=== PATIENT | male | born 1965 | race Caucasian/White ===

== ENCOUNTER 2020-11-02 12:42 | Inpatient (IN) | payer SELFPAY ==
[2020-11-02 13:15] LABS: Actual Bicarbonate (HCO3a) 23.9 mEq/L (22-28); Analyzer IN Cardio ER; CO2 Tension 30.7 mmHg (35.0-45.0); Calcium, Ionized (arterial) 1.01 mmol/L (1.12-1.30); Carboxyhemoglobin (COHb) 0.9 gm% (0.0-3.0); Hemoglobin (Hb) 16.6 g/dL (14.0-18.0); Potassium - ABG Lab 2.89 mmol/L (3.70-5.30); pH, Arterial 7.51 (7.35-7.45)
[2020-11-02 13:17] LABS: O2 Tension (PaO2), arterial 42.5 mmHg (80.0-100.0); Puncture Site LRA
[2020-11-02 13:18] LABS: ALV-art Gradient 560.825 mmHg (0-20)
[2020-11-02] MEDS ORDERED: Dexamethasone 10 MG/ML VIAL ONE (13:54)
[2020-11-02] MEDS ORDERED: Lorazepam 2 MG/ML VIAL ONE ×2 (13:54→17:22)
[2020-11-02 14:46] LABS: Actual Bicarbonate (HCO3a) 25.7 mEq/L (22-28); Analyzer IN Cardio ER; CO2 Tension 34.4 mmHg (35.0-45.0); Calcium, Ionized (arterial) 1.04 mmol/L (1.12-1.30); Carboxyhemoglobin (COHb) 0.5 gm% (0.0-3.0); Hemoglobin (Hb) 17.2 g/dL (14.0-18.0); Potassium - ABG Lab 3.13 mmol/L (3.70-5.30); pH, Arterial 7.49 (7.35-7.45)
[2020-11-02 14:47] LABS: O2 Tension (PaO2), arterial 52.7 mmHg (80.0-100.0); Puncture Site RRA
[2020-11-02 14:56] LABS: #Basophils 0.1 thou/uL (0.0-0.2); #Lymphocytes 0.5 thou/uL (1.20-3.40); #Monocytes 0.4 thou/uL (0.11-0.59); #Neutrophils 5.8 thou/uL (1.40-6.50); %Basophils 1.5 % (0.0-1.0); %Lymphocytes 7.6 % (21.0-51.0); %Monocytes 5.3 % (0.0-10.0); %Neutrophils 85.5 % (42.0-75.0); Hemoglobin 16.3 g/dL (14.0-18.0); Mean Corpuscular HGB CONC 34.3 g/dL (32.0-36.0); Mean Corpuscular Hemoglobin 30.2 pg (27.0-31.0); Mean Corpuscular Volume 88.2 fL (78.0-98.0); Mean Platelet Volume 9.4 fL (7.4-10.4); Platelet Count 143 thou/uL (130-400); RBC Distribution Width 12.5 % (11.5-14.5); Red Blood Cell (RBC) Count 5.38 mill/uL (4.70-6.10); White Blood Cell (WBC) Count 6.7 thou/uL (4.8-10.8)
[2020-11-02 15:11] LABS: SARS-CoV-2 NAA Rapid Test DETECTED (NotDetected)
[2020-11-02] MEDS ORDERED: cefTRIAXone\\ROCEPHIN 2 GM VIAL ONE (15:14)
[2020-11-02 15:17] LABS: ALT (SGPT) 50 U/L (8-55); AST (SGOT) 143 U/L (5-34); Albumin 3.2 g/dL (3.5-5.0); Alkaline Phosphatase 85 U/L (40-110); Anion Gap 16 mmol/L (10-20); BUN (Urea Nitrogen) 26 mg/dL (8.4-25.7); Bilirubin, Total 1.1 mg/dL (0.2-1.2); Calc. Creatinine Clearance 0 mL/min (70-130); Calcium 8.4 mg/dL (7.8-10.44); Carbon Dioxide 25 mmol/L (22-29); Chloride 97 mmol/L (98-107); Glucose 318 mg/dL (70-105); Lipase 40 U/L (8-78); Potassium 3.1 mmol/L (3.5-5.1); Protein, Total 7.2 g/dL (6.0-8.3); Sodium 135 mmol/L (136-145)
[2020-11-02] MEDS ORDERED: Rocuronium Bromide 10 MG/ML (10ML VIAL) ONE (15:45)
[2020-11-02] MEDS ORDERED: Ketamine 50 MG/ML (10ML VIAL) ONE (15:45)
[2020-11-02 15:56] LABS: CKMB 26.3 ng/mL (0-6.6)
[2020-11-02] MEDS ORDERED: Norepinephrine 8 MG/0.9% NS 250 ML ONE (16:49)
[2020-11-02 16:54] LABS: Actual Bicarbonate (HCO3a) 22.1 mEq/L (22-28); Analyzer IN Cardio ER; Base Excess (BEa) 0.1 mEq/L (-2.0 to +3.0); CO2 Tension 29.6 mmHg (35.0-45.0); Calcium, Ionized (arterial) 1.04 mmol/L (1.12-1.30); Carboxyhemoglobin (COHb) 0.5 gm% (0.0-3.0); Hemoglobin (Hb) 16.6 g/dL (14.0-18.0); Potassium - ABG Lab 3.43 mmol/L (3.70-5.30); pH, Arterial 7.49 (7.35-7.45)
[2020-11-02 17:02] LABS: O2 Tension (PaO2), arterial 50.5 mmHg (80.0-100.0); Puncture Site LRA
[2020-11-02] MEDS ORDERED: fentaNYL Citrate/PF 2,000 MCG in Sodium Chloride 0.9% 60 ML IV PRN (17:07)
[2020-11-02] MEDS ORDERED: Magnesium 2 GM/50 ML 2 GM in Premix Bag 1 BAG IVPB PRN (17:07)
[2020-11-02] MEDS ORDERED: Vecuronium Bromide 50 MG in Sodium Chloride 0.9% 250 ML 250 ML IV SCH (17:15)
[2020-11-02] MEDS ORDERED: Famotidine 40 MG/4 ML VIAL IV SCH (17:15)
[2020-11-02] MEDS ORDERED: Acetaminophen 650 MG Suppository PR PRN (17:15)
[2020-11-02] MEDS ORDERED: Lactated Ringer's 1,000 ML IV SCH (17:15)
[2020-11-02] MEDS ORDERED: Electrolyte Replacement Protocol 1 EACH FS SCH (17:15)
[2020-11-02] MEDS ORDERED: Vecuronium 10 MG VIAL ONE (17:23)
[2020-11-02] MEDS ORDERED: Sterile Water 10 ML ONE (17:23)
[2020-11-02] MEDS ORDERED: Electrolyte Replacement Protocol FS PRN (18:00)
[2020-11-02] MEDS ORDERED: fentaNYL Citrate/PF 2,000 MCG in Sodium Chloride 0.9% 60 ML IV SCH (18:00)
[2020-11-02] MEDS: Propofol 1,000 MG/100 ML VIAL IV PRN (18:02)
[2020-11-02] MEDS: Cefepime 1 GM in Sodium Chloride 0.9% 100 ML IVPB SCH (18:02)
[2020-11-02 18:36] LABS: Lactic Acid 3.2 mmol/L (0.5-2.2)
[2020-11-02 18:55] LABS: Troponin I 8.421 ng/mL (< 0.028)
[2020-11-02] MEDS ORDERED: Tocilizumab 400 MG in Sodium Chloride 0.9% 80 ML IV SCH (19:30)
[2020-11-02 19:31] LABS: Actual Bicarbonate (HCO3a) 20.4 mEq/L (22-28); Base Excess (BEa) -1.8 mEq/L (-2.0 to +3.0); CO2 Tension 28.6 mmHg (35.0-45.0); Calcium, Ionized (arterial) 1.04 mmol/L (1.12-1.30); Carboxyhemoglobin (COHb) 0.9 gm% (0.0-3.0); Hemoglobin (Hb) 15.6 g/dL (14.0-18.0); Potassium - ABG Lab 3.49 mmol/L (3.70-5.30); pH, Arterial 7.47 (7.35-7.45)
[2020-11-02 19:43] LABS: O2 Tension (PaO2), arterial 51.4 mmHg (80.0-100.0); Puncture Site LRA
[2020-11-02] MEDS ORDERED: Enoxaparin Sodium 120 MG/0.8 ML SYRINGE SC SCH (20:15)
[2020-11-02] MEDS: Azithromycin 500 MG in Sodium Chloride 0.9% 250 ML 250 ML IVPB SCH (20:47)
[2020-11-02] MEDS: Lantus 1000 UNITS/10 ML VIAL SC SCH (20:52)
[2020-11-02] MEDS ORDERED: Dextrose 5% in Water 1,000 ML IV PRN (21:00)
[2020-11-02] MEDS ORDERED: Insulin Regular 300 UNITS/3 ML VIAL SC SCH (21:00)
[2020-11-02] MEDS ORDERED: Dextrose 50% Abboject 50 ML SYRINGE IVP PRN (21:00)
[2020-11-02] MEDS: Famotidine/PF 20 mg/2ml Vial SLOW IVP SCH (21:02)
[2020-11-02] MEDS: Insulin Regular 300 UNITS/3 ML VIAL SC PRN (21:30)
[2020-11-02 22:03] LABS: Bacteria/HPF 2+ HPF (None Seen); Bilirubin Negative (Negative); Blood, Urine 2+ (Negative); Glucose, Urine (Dipstick) Greater than 1000 mg/dL (Negative); Ketone, Urine Negative (Negative); Leukocyte Negative Leu/uL (Negative); Nitrite Negative (Negative); Protein, Urine (Dipstick) 100 mg/dL (Neg-Trace); RBC/HPF 0-3 HPF (0-3); Specific Gravity, Urine 1.023 (1.002-1.036); Squamous Epithelial 0-3 HPF (0-3); Urobilinogen 6 mg/dL (Less than 2)
[2020-11-02 22:04] LABS: Clarity Cloudy (Clear)
[2020-11-03] MEDS: Insulin Regular 300 UNITS/3 ML VIAL SC PRN ×6 (00:35→21:39)
[2020-11-03] MEDS: Lorazepam 2 MG/ML VIAL SLOW IVP PRN (01:00)
[2020-11-03] MEDS: Propofol 1,000 MG/100 ML VIAL IV PRN ×6 (02:31→23:54)
[2020-11-03] MEDS: Cefepime 1 GM in Sodium Chloride 0.9% 100 ML IVPB SCH ×3 (02:31→16:49)
[2020-11-03 05:08] LABS: #Lymphocytes 0.9 thou/uL (1.20-3.40); #Monocytes 0.5 thou/uL (0.11-0.59); #Neutrophils 5.2 thou/uL (1.40-6.50); %Basophils 0.4 % (0.0-1.0); %Eosinophils 0.2 % (0.0-10.0); %Lymphocytes 13.2 % (21.0-51.0); %Monocytes 6.9 % (0.0-10.0); %Neutrophils 79.4 % (42.0-75.0); Hemoglobin 14.6 g/dL (14.0-18.0); Mean Corpuscular HGB CONC 35.2 g/dL (32.0-36.0); Mean Corpuscular Hemoglobin 31.8 pg (27.0-31.0); Mean Corpuscular Volume 90.4 fL (78.0-98.0); Mean Platelet Volume 9.8 fL (7.4-10.4); Platelet Count 183 thou/uL (130-400); RBC Distribution Width 12.8 % (11.5-14.5); White Blood Cell (WBC) Count 6.6 thou/uL (4.8-10.8)
[2020-11-03 05:31] LABS: Magnesium 2.1 mg/dL (1.6-2.6); Phosphorus 3.2 mg/dL (2.3-4.7)
[2020-11-03] MEDS ORDERED: Potassium Chloride 40 MEQ in Premix Bag 1 BAG IVPB SCH (06:15)
[2020-11-03] MEDS ORDERED: Dextrose 5% in Water 1,000 ML IV PRN (06:15)
[2020-11-03] MEDS ORDERED: Lactated Ringer's 1,000 ML IV SCH (06:15)
[2020-11-03] MEDS ORDERED: Dextrose 50% Abboject 50 ML SYRINGE IVP PRN (06:15)
[2020-11-03] MEDS: Lantus 1000 UNITS/10 ML VIAL SC SCH ×2 (06:19→16:54)
[2020-11-03] MEDS ORDERED: Fentanyl CADD 100 ML ONE ×2 (06:19→18:56)
[2020-11-03 07:06] LABS: Actual Bicarbonate (HCO3a) 19.1 mEq/L (22-28); Base Excess (BEa) -3.6 mEq/L (-2.0 to +3.0); CO2 Tension 28.8 mmHg (35.0-45.0); Calcium, Ionized (arterial) 1.05 mmol/L (1.12-1.30); Carboxyhemoglobin (COHb) 0.6 gm% (0.0-3.0); Hemoglobin (Hb) 15.3 g/dL (14.0-18.0); O2 Tension (PaO2), arterial 60.1 mmHg (80.0-100.0); Potassium - ABG Lab 3.35 mmol/L (3.70-5.30); pH, Arterial 7.44 (7.35-7.45)
[2020-11-03 07:07] LABS: Puncture Site RRA
[2020-11-03 07:42] LABS: Legionella Urinary Ag Negative (Negative); Strep pneumo Urine Ag NEGATIVE (NEGATIVE)
[2020-11-03] MEDS: Dexamethasone 4 mg/ml Vial SLOW IVP SCH (08:40)
[2020-11-03] MEDS: Enoxaparin Sodium 120 MG/0.8 ML SYRINGE SC SCH ×2 (08:41→20:36)
[2020-11-03] MEDS: Famotidine/PF 20 mg/2ml Vial SLOW IVP SCH ×2 (08:41→20:37)
[2020-11-03] MEDS ORDERED: Enoxaparin Sodium 40 MG/0.4 ML SYRINGE SC SCH ×2 (09:00)
[2020-11-03] MEDS ORDERED: Lantus 1000 UNITS/10 ML VIAL SC SCH (11:15)
[2020-11-03 17:15] LABS: Actual Bicarbonate (HCO3a) 19.7 mEq/L (22-28); Base Excess (BEa) -2.5 mEq/L (-2.0 to +3.0); CO2 Tension 27.4 mmHg (35.0-45.0); Calcium, Ionized (arterial) 1.04 mmol/L (1.12-1.30); Carboxyhemoglobin (COHb) 0.7 gm% (0.0-3.0); Hemoglobin (Hb) 13.8 g/dL (14.0-18.0); Potassium - ABG Lab 3.32 mmol/L (3.70-5.30); pH, Arterial 7.47 (7.35-7.45)
[2020-11-03] MEDS ORDERED: Sodium Chloride 0.9% 1,000 ML IV SCH (17:15)
[2020-11-03 17:16] LABS: O2 Tension (PaO2), arterial 46.9 mmHg (80.0-100.0); Puncture Site LRA
[2020-11-03] MEDS ORDERED: Albumin 25% 25 GM/100 ML BOT IVPB SCH (17:42)
[2020-11-03] MEDS: Lactated Ringer's 1,000 ML IV SCH (18:20)
[2020-11-03] MEDS: Fentanyl CADD 100 ML IV SCH (19:02)
[2020-11-03] MEDS: Azithromycin 500 MG in Sodium Chloride 0.9% 250 ML 250 ML IVPB SCH (20:36)
[2020-11-04] MEDS: Insulin Regular 300 UNITS/3 ML VIAL SC PRN ×6 (00:28→20:14)
[2020-11-04] MEDS: Cefepime 1 GM in Sodium Chloride 0.9% 100 ML IVPB SCH ×3 (02:09→17:55)
[2020-11-04] MEDS: Propofol 1,000 MG/100 ML VIAL IV PRN ×6 (04:10→22:28)
[2020-11-04 04:48] LABS: #Lymphocytes 0.8 thou/uL (1.20-3.40); #Monocytes 0.5 thou/uL (0.11-0.59); #Neutrophils 5.4 thou/uL (1.40-6.50); %Basophils 0.6 % (0.0-1.0); %Eosinophils 0.1 % (0.0-10.0); %Lymphocytes 11.6 % (21.0-51.0); %Monocytes 7.2 % (0.0-10.0); %Neutrophils 80.6 % (42.0-75.0); Hemoglobin 13.1 g/dL (14.0-18.0); Mean Corpuscular HGB CONC 35.8 g/dL (32.0-36.0); Mean Corpuscular Hemoglobin 32.4 pg (27.0-31.0); Mean Corpuscular Volume 90.4 fL (78.0-98.0); Platelet Count 165 thou/uL (130-400); Red Blood Cell (RBC) Count 4.04 mill/uL (4.70-6.10); White Blood Cell (WBC) Count 6.7 thou/uL (4.8-10.8)
[2020-11-04 04:57] LABS: Anion Gap 17 mmol/L (10-20); BUN (Urea Nitrogen) 53 mg/dL (8.4-25.7); Calc. Creatinine Clearance 59 mL/min (70-130); Carbon Dioxide 20 mmol/L (22-29); Chloride 104 mmol/L (98-107); Glucose 358 mg/dL (70-105); Magnesium 2.3 mg/dL (1.6-2.6); Phosphorus 3.4 mg/dL (2.3-4.7); Potassium 3.6 mmol/L (3.5-5.1); Sodium 137 mmol/L (136-145)
[2020-11-04] MEDS: Lantus 1000 UNITS/10 ML VIAL SC SCH (05:38)
[2020-11-04] MEDS: Lactated Ringer's 1,000 ML IV SCH ×2 (06:12→16:45)
[2020-11-04 07:29] LABS: CO2 Tension 27.1 mmHg (35.0-45.0); Calcium, Ionized (arterial) 1.05 mmol/L (1.12-1.30); Carboxyhemoglobin (COHb) 0.1 gm% (0.0-3.0); O2 Tension (PaO2), arterial 83.5 mmHg (80.0-100.0); Potassium - ABG Lab 3.45 mmol/L (3.70-5.30); pH, Arterial 7.49 (7.35-7.45)
[2020-11-04 07:31] LABS: ALV-art Gradient 310.425 mmHg (0-20); Puncture Site LRA
[2020-11-04] MEDS ORDERED: Fentanyl CADD 100 ML ONE ×2 (07:45→21:12)
[2020-11-04] MEDS: Fentanyl CADD 100 ML IV SCH (07:56)
[2020-11-04] MEDS: Dexamethasone 4 mg/ml Vial SLOW IVP SCH (07:57)
[2020-11-04] MEDS: Enoxaparin Sodium 120 MG/0.8 ML SYRINGE SC SCH ×2 (07:57→20:12)
[2020-11-04] MEDS: Famotidine/PF 20 mg/2ml Vial SLOW IVP SCH ×2 (07:57→20:12)
[2020-11-04 09:52] LABS: Hemoglobin A1c 10.7 % (4.0-6.0)
[2020-11-04 12:26] LABS: Creatinine, Urine 142.23 mg/dL (63-166); Protein, Urine Random Quant 94 mg/dL (1-14); Sodium, Urine Less than 20 mmol/L (Not Available); Urea Nitrogen, Random Urine 1024 mg/dl
[2020-11-04] MEDS ORDERED: Lactated Ringer's 500 ML IV SCH (13:15)
[2020-11-04] MEDS ORDERED: Lantus 1000 UNITS/10 ML VIAL SC SCH ×2 (13:45→21:00)
[2020-11-04] MEDS: Azithromycin 500 MG in Sodium Chloride 0.9% 250 ML 250 ML IVPB SCH (20:11)
[2020-11-05] MEDS: Insulin Regular 300 UNITS/3 ML VIAL SC PRN ×5 (00:24→21:25)
[2020-11-05] MEDS: Cefepime 1 GM in Sodium Chloride 0.9% 100 ML IVPB SCH ×2 (01:46→09:15)
[2020-11-05 06:36] LABS: Band 11 % (5-11); Hemoglobin 12.9 g/dL (14.0-18.0); Lymphocytes 12 % (21-51); MDiff Complete? YES; Mean Corpuscular HGB CONC 32.8 g/dL (32.0-36.0); Mean Corpuscular Hemoglobin 29.9 pg (27.0-31.0); Mean Corpuscular Volume 90.9 fL (78.0-98.0); Monocytes 1 % (0-10); Myelocyte 1 % (0-0); Neutrophil 75 % (42-75); Nucleated RBC 3 % (0); Platelet Count 213 thou/uL (130-400); RBC Distribution Width 13.1 % (11.5-14.5); Red Blood Cell (RBC) Count 4.32 mill/uL (4.70-6.10); White Blood Cell (WBC) Count 9.7 thou/uL (4.8-10.8)
[2020-11-05 07:08] LABS: Albumin 2.9 g/dL (3.5-5.0); Anion Gap 18 mmol/L (10-20); BUN (Urea Nitrogen) 63 mg/dL (8.4-25.7); BUN/Creatinine Ratio 30.14; Calc. Creatinine Clearance 62 mL/min (70-130); Calcium 8.2 mg/dL (7.8-10.44); Carbon Dioxide 20 mmol/L (22-29); Chloride 108 mmol/L (98-107); Glucose 307 mg/dL (70-105); Phosphorus 3.4 mg/dL (2.3-4.7); Potassium 3.8 mmol/L (3.5-5.1); Sodium 142 mmol/L (136-145)
[2020-11-05 07:28] LABS: Actual Bicarbonate (HCO3a) 19.9 mEq/L (22-28); Base Excess (BEa) -2.2 mEq/L (-2.0 to +3.0); CO2 Tension 28.3 mmHg (35.0-45.0); Calcium, Ionized (arterial) 1.09 mmol/L (1.12-1.30); Carboxyhemoglobin (COHb) 0.5 gm% (0.0-3.0); Hemoglobin (Hb) 16.8 g/dL (14.0-18.0); Potassium - ABG Lab 3.62 mmol/L (3.70-5.30); pH, Arterial 7.47 (7.35-7.45)
[2020-11-05 07:45] LABS: O2 Tension (PaO2), arterial 55.7 mmHg (80.0-100.0); Puncture Site LRA
[2020-11-05 07:46] LABS: ALV-art Gradient 265.425 mmHg (0-20)
[2020-11-05] MEDS: Dexamethasone 4 mg/ml Vial SLOW IVP SCH ×2 (09:10→21:10)
[2020-11-05] MEDS: Enoxaparin Sodium 120 MG/0.8 ML SYRINGE SC SCH (09:12)
[2020-11-05] MEDS: Famotidine/PF 20 mg/2ml Vial SLOW IVP SCH (09:13)
[2020-11-05] MEDS: Sodium Bicarbonate Tab 325 MG TAB PER TUBE SCH ×3 (09:14→21:09)
[2020-11-05] MEDS: Lactated Ringer's 1,000 ML IV SCH ×3 (09:15→19:39)
[2020-11-05] MEDS: NPH, Human Insulin Isophane 300 UNIT/3 ML VIAL SC SCH ×2 (09:19→21:12)
[2020-11-05] MEDS ORDERED: Vecuronium 10 MG VIAL ONE (09:39)
[2020-11-05] MEDS ORDERED: Sterile Water 10 ML ONE (09:39)
[2020-11-05] MEDS: Lorazepam 2 MG/ML VIAL SLOW IVP PRN (10:13)
[2020-11-05] MEDS ORDERED: Fentanyl CADD 100 ML ONE (10:44)
[2020-11-05] MEDS: Propofol 1,000 MG/100 ML VIAL IV PRN ×4 (10:50→21:20)
[2020-11-05] MEDS: FENTANYL IV SCH (10:50)
[2020-11-06] MEDS ORDERED: Fentanyl CADD 100 ML ONE ×2 (00:03→13:38)
[2020-11-06] MEDS: Insulin Regular 300 UNITS/3 ML VIAL SC PRN ×4 (00:06→21:27)
[2020-11-06] MEDS: Propofol 1,000 MG/100 ML VIAL IV PRN ×6 (02:34→19:15)
[2020-11-06 04:23] LABS: Hemoglobin A1c 10.9 % (4.0-6.0)
[2020-11-06 05:08] LABS: Albumin 2.9 g/dL (3.5-5.0); Anion Gap 17 mmol/L (10-20); BUN (Urea Nitrogen) 66 mg/dL (8.4-25.7); BUN/Creatinine Ratio 30.84; Band 14 % (5-11); CK (CPK) 390 U/L (30-200); Calc. Creatinine Clearance 61 mL/min (70-130); Calcium 8.2 mg/dL (7.8-10.44); Carbon Dioxide 22 mmol/L (22-29); Chloride 106 mmol/L (98-107); Glucose 226 mg/dL (70-105); Hemoglobin 13.9 g/dL (14.0-18.0); Lymphocytes 7 % (21-51); MDiff Complete? YES; Mean Corpuscular HGB CONC 35.6 g/dL (32.0-36.0); Mean Corpuscular Hemoglobin 32.4 pg (27.0-31.0); Mean Corpuscular Volume 91.1 fL (78.0-98.0); Mean Platelet Volume 9.7 fL (7.4-10.4); Monocytes 5 % (0-10); Myelocyte 3 % (0-0); Neutrophil 71 % (42-75); Nucleated RBC 1 % (0); Phosphorus 4.1 mg/dL (2.3-4.7); Platelet Count 225 thou/uL (130-400); Potassium 3.8 mmol/L (3.5-5.1); RBC Distribution Width 13.1 % (11.5-14.5); Sodium 141 mmol/L (136-145); White Blood Cell (WBC) Count 14.3 thou/uL (4.8-10.8)
[2020-11-06] MEDS: Lactated Ringer's 1,000 ML IV SCH ×2 (05:47→08:51)
[2020-11-06 08:03] LABS: Actual Bicarbonate (HCO3a) 20.3 mEq/L (22-28); Base Excess (BEa) -2.3 mEq/L (-2.0 to +3.0); CO2 Tension 29.3 mmHg (35.0-45.0); Calcium, Ionized (arterial) 1.08 mmol/L (1.12-1.30); Carboxyhemoglobin (COHb) 0.6 gm% (0.0-3.0); Hemoglobin (Hb) 14.2 g/dL (14.0-18.0); Potassium - ABG Lab 3.76 mmol/L (3.70-5.30); pH, Arterial 7.46 (7.35-7.45)
[2020-11-06 08:27] LABS: O2 Tension (PaO2), arterial 51.3 mmHg (80.0-100.0)
[2020-11-06 08:28] LABS: ALV-art Gradient 339.875 mmHg (0-20); Puncture Site LRA
[2020-11-06] MEDS: Famotidine/PF 20 mg/2ml Vial SLOW IVP SCH (08:47)
[2020-11-06] MEDS: Dexamethasone 4 mg/ml Vial SLOW IVP SCH ×2 (08:47→21:00)
[2020-11-06] MEDS: NPH, Human Insulin Isophane 300 UNIT/3 ML VIAL SC SCH ×2 (08:48→21:02)
[2020-11-06] MEDS: Enoxaparin Sodium 120 MG/0.8 ML SYRINGE SC SCH (08:53)
[2020-11-06] MEDS: Sodium Bicarbonate Tab 325 MG TAB PER TUBE SCH ×3 (10:27→21:28)
[2020-11-06] MEDS: FENTANYL IV SCH (13:42)
[2020-11-06] MEDS: Lorazepam 2 MG/ML VIAL SLOW IVP PRN (14:24)
[2020-11-06] MEDS ORDERED: Vecuronium 10 MG VIAL ONE (14:39)
[2020-11-07] MEDS: Insulin Regular 300 UNITS/3 ML VIAL SC PRN ×6 (00:08→21:58)
[2020-11-07] MEDS: Propofol 1,000 MG/100 ML VIAL IV PRN ×5 (00:08→21:21)
[2020-11-07] MEDS ORDERED: Fentanyl CADD 100 ML ONE ×2 (02:54→13:54)
[2020-11-07] MEDS: Lorazepam 2 MG/ML VIAL SLOW IVP PRN ×3 (03:17→18:45)
[2020-11-07 04:16] LABS: Albumin 2.8 g/dL (3.5-5.0); Anion Gap 14 mmol/L (10-20); BUN (Urea Nitrogen) 58 mg/dL (8.4-25.7); BUN/Creatinine Ratio 39.19; Calc. Creatinine Clearance 90 mL/min (70-130); Calcium 8.1 mg/dL (7.8-10.44); Carbon Dioxide 24 mmol/L (22-29); Chloride 109 mmol/L (98-107); Glucose 206 mg/dL (70-105); Phosphorus 4.3 mg/dL (2.3-4.7); Potassium 3.9 mmol/L (3.5-5.1); Sodium 143 mmol/L (136-145)
[2020-11-07 04:48] LABS: Band 17 % (5-11); Hemoglobin 14.1 g/dL (14.0-18.0); Lymphocytes 11 % (21-51); MDiff Complete? YES; Mean Corpuscular HGB CONC 35.1 g/dL (32.0-36.0); Mean Corpuscular Hemoglobin 32.1 pg (27.0-31.0); Mean Corpuscular Volume 91.4 fL (78.0-98.0); Mean Platelet Volume 9.7 fL (7.4-10.4); Monocytes 1 % (0-10); Neutrophil 71 % (42-75); Nucleated RBC 4 % (0); Platelet Count 236 thou/uL (130-400); RBC Distribution Width 13.2 % (11.5-14.5); Red Blood Cell (RBC) Count 4.38 mill/uL (4.70-6.10); White Blood Cell (WBC) Count 17.7 thou/uL (4.8-10.8)
[2020-11-07] MEDS: Lactated Ringer's 1,000 ML IV SCH (07:38)
[2020-11-07 08:12] LABS: Actual Bicarbonate (HCO3a) 22.4 mEq/L (22-28); Base Excess (BEa) -1.1 mEq/L (-2.0 to +3.0); CO2 Tension 34.4 mmHg (35.0-45.0); Calcium, Ionized (arterial) 1.13 mmol/L (1.12-1.30); Carboxyhemoglobin (COHb) 0.8 gm% (0.0-3.0); Hemoglobin (Hb) 15.5 g/dL (14.0-18.0); Potassium - ABG Lab 3.84 mmol/L (3.70-5.30); pH, Arterial 7.43 (7.35-7.45)
[2020-11-07 08:23] LABS: O2 Tension (PaO2), arterial 58.4 mmHg (80.0-100.0); Puncture Site LRA
[2020-11-07] MEDS: Famotidine/PF 20 mg/2ml Vial SLOW IVP SCH ×2 (09:24→21:19)
[2020-11-07] MEDS: Dexamethasone 4 mg/ml Vial SLOW IVP SCH ×2 (09:25→21:19)
[2020-11-07] MEDS: Apixaban 5 MG TAB PER TUBE SCH ×2 (09:25→21:18)
[2020-11-07] MEDS: NPH, Human Insulin Isophane 300 UNIT/3 ML VIAL SC SCH ×2 (09:26→21:57)
[2020-11-07] MEDS: Vecuronium 10 MG VIAL IVP PRN ×5 (09:52→21:17)
[2020-11-07] MEDS: FENTANYL IV SCH (14:02)
[2020-11-08] MEDS ORDERED: Fentanyl CADD 100 ML ONE ×3 (00:16→22:05)
[2020-11-08] MEDS: FENTANYL IV SCH ×3 (00:19→22:07)
[2020-11-08] MEDS: Insulin Regular 300 UNITS/3 ML VIAL SC PRN ×4 (00:20→16:00)
[2020-11-08] MEDS: Lorazepam 2 MG/ML VIAL SLOW IVP PRN ×2 (01:26→04:49)
[2020-11-08] MEDS: Vecuronium 10 MG VIAL IVP PRN ×2 (01:26→04:49)
[2020-11-08] MEDS: Propofol 1,000 MG/100 ML VIAL IV PRN ×4 (02:43→21:56)
[2020-11-08 05:09] LABS: Hemoglobin 14.7 g/dL (14.0-18.0); Mean Corpuscular HGB CONC 35.4 g/dL (32.0-36.0); Mean Corpuscular Hemoglobin 32.5 pg (27.0-31.0); Mean Corpuscular Volume 91.8 fL (78.0-98.0); Mean Platelet Volume 9.4 fL (7.4-10.4); Platelet Count 245 thou/uL (130-400); RBC Distribution Width 13.8 % (11.5-14.5); Red Blood Cell (RBC) Count 4.53 mill/uL (4.70-6.10); White Blood Cell (WBC) Count 15.9 thou/uL (4.8-10.8)
[2020-11-08 05:23] LABS: Albumin 2.7 g/dL (3.5-5.0); Anion Gap 11 mmol/L (10-20); BUN (Urea Nitrogen) 46 mg/dL (8.4-25.7); BUN/Creatinine Ratio 41.82; Calc. Creatinine Clearance 121 mL/min (70-130); Calcium 8.4 mg/dL (7.8-10.44); Carbon Dioxide 26 mmol/L (22-29); Chloride 109 mmol/L (98-107); Glucose 162 mg/dL (70-105); Potassium 4.1 mmol/L (3.5-5.1); Sodium 142 mmol/L (136-145)
[2020-11-08 05:57] LABS: Band 11 % (5-11); Lymphocytes 3 % (21-51); MDiff Complete? YES; Metamyelocyte 1 % (0-0); Monocytes 5 % (0-10); Myelocyte 3 % (0-0); Neutrophil 77 % (42-75)
[2020-11-08 07:51] LABS: Actual Bicarbonate (HCO3a) 26.1 mEq/L (22-28); Base Excess (BEa) 1.4 mEq/L (-2.0 to +3.0); CO2 Tension 41.6 mmHg (35.0-45.0); Calcium, Ionized (arterial) 1.15 mmol/L (1.12-1.30); Carboxyhemoglobin (COHb) 0.8 gm% (0.0-3.0); Hemoglobin (Hb) 15.3 g/dL (14.0-18.0); Potassium - ABG Lab 4.06 mmol/L (3.70-5.30); pH, Arterial 7.42 (7.35-7.45)
[2020-11-08] MEDS ORDERED: Furosemide 40 MG/4 ML VIAL SLOW IVP SCH (09:00)
[2020-11-08 09:03] LABS: O2 Tension (PaO2), arterial 55.1 mmHg (80.0-100.0); Puncture Site LRA
[2020-11-08] MEDS: Apixaban 5 MG TAB PER TUBE SCH ×2 (09:25→20:53)
[2020-11-08] MEDS: Famotidine/PF 20 mg/2ml Vial SLOW IVP SCH (09:26)
[2020-11-08] MEDS: Dexamethasone 4 mg/ml Vial SLOW IVP SCH ×2 (09:26→20:54)
[2020-11-08] MEDS: NPH, Human Insulin Isophane 300 UNIT/3 ML VIAL SC SCH ×2 (09:30→21:54)
[2020-11-08 09:40] LABS: ALT (SGPT) 114 U/L (8-55); AST (SGOT) 89 U/L (5-34); Albumin 2.9 g/dL (3.5-5.0); Alkaline Phosphatase 67 U/L (40-110); Bilirubin, Direct 0.7 mg/dL (0.1-0.3); Bilirubin, Total 1.3 mg/dL (0.2-1.2); Protein, Total 6.1 g/dL (6.0-8.3)
[2020-11-08] MEDS: Famotidine 20 MG TAB PO SCH (20:53)
[2020-11-09] MEDS: Propofol 1,000 MG/100 ML VIAL IV PRN ×5 (03:21→22:42)
[2020-11-09 04:53] LABS: #Lymphocytes 0.7 thou/uL (1.20-3.40); #Monocytes 0.6 thou/uL (0.11-0.59); #Neutrophils 9.8 thou/uL (1.40-6.50); %Basophils 0.2 % (0.0-1.0); %Eosinophils 0.2 % (0.0-10.0); %Lymphocytes 6.5 % (21.0-51.0); %Monocytes 5.3 % (0.0-10.0); %Neutrophils 87.8 % (42.0-75.0); Hemoglobin 14.8 g/dL (14.0-18.0); Mean Corpuscular HGB CONC 35.6 g/dL (32.0-36.0); Mean Corpuscular Hemoglobin 32.6 pg (27.0-31.0); Mean Corpuscular Volume 91.5 fL (78.0-98.0); Mean Platelet Volume 9.4 fL (7.4-10.4); Platelet Count 239 thou/uL (130-400); RBC Distribution Width 14.1 % (11.5-14.5); Red Blood Cell (RBC) Count 4.53 mill/uL (4.70-6.10); White Blood Cell (WBC) Count 11.1 thou/uL (4.8-10.8)
[2020-11-09 05:11] LABS: Albumin 2.8 g/dL (3.5-5.0); Anion Gap 13 mmol/L (10-20); BUN (Urea Nitrogen) 44 mg/dL (8.4-25.7); BUN/Creatinine Ratio 46.32; Calc. Creatinine Clearance 140 mL/min (70-130); Calcium 8.3 mg/dL (7.8-10.44); Carbon Dioxide 26 mmol/L (22-29); Chloride 111 mmol/L (98-107); Glucose 151 mg/dL (70-105); Phosphorus 4.1 mg/dL (2.3-4.7); Potassium 3.9 mmol/L (3.5-5.1); Sodium 146 mmol/L (136-145)
[2020-11-09 07:53] LABS: Actual Bicarbonate (HCO3a) 25.8 mEq/L (22-28); Base Excess (BEa) 4.3 mEq/L (-2.0 to +3.0); CO2 Tension 30.2 mmHg (35.0-45.0); Calcium, Ionized (arterial) 1.13 mmol/L (1.12-1.30); Carboxyhemoglobin (COHb) 0.4 gm% (0.0-3.0); Hemoglobin (Hb) 15.4 g/dL (14.0-18.0); Potassium - ABG Lab 3.83 mmol/L (3.70-5.30)
[2020-11-09 07:57] LABS: O2 Tension (PaO2), arterial 56.6 mmHg (80.0-100.0); Puncture Site RRA; pH, Arterial 7.55 (7.35-7.45)
[2020-11-09] MEDS ORDERED: Fentanyl CADD 100 ML ONE ×2 (08:55→21:49)
[2020-11-09] MEDS: FENTANYL IV SCH ×2 (09:03→21:53)
[2020-11-09] MEDS: Famotidine 20 MG TAB PO SCH ×2 (09:04→21:31)
[2020-11-09] MEDS: Dexamethasone 4 mg/ml Vial SLOW IVP SCH ×2 (09:04→21:32)
[2020-11-09] MEDS: Apixaban 5 MG TAB PER TUBE SCH ×2 (09:04→21:31)
[2020-11-09] MEDS: NPH, Human Insulin Isophane 300 UNIT/3 ML VIAL SC SCH ×2 (09:09→21:35)
[2020-11-09] MEDS ORDERED: Torsemide 20 MG TAB PO SCH (10:45)
[2020-11-09] MEDS: Insulin Regular 300 UNITS/3 ML VIAL SC PRN ×2 (16:34→20:53)
[2020-11-10] MEDS: Propofol 1,000 MG/100 ML VIAL IV PRN ×5 (02:49→22:59)
[2020-11-10 03:57] LABS: #Lymphocytes 0.5 thou/uL (1.20-3.40); #Monocytes 0.5 thou/uL (0.11-0.59); %Eosinophils 0.1 % (0.0-10.0); %Lymphocytes 4.8 % (21.0-51.0); %Monocytes 4.7 % (0.0-10.0); %Neutrophils 90.4 % (42.0-75.0); Hemoglobin 15.1 g/dL (14.0-18.0); Mean Corpuscular HGB CONC 34.2 g/dL (32.0-36.0); Mean Corpuscular Hemoglobin 31.9 pg (27.0-31.0); Mean Corpuscular Volume 93.3 fL (78.0-98.0); Mean Platelet Volume 9.2 fL (7.4-10.4); Platelet Count 213 thou/uL (130-400); RBC Distribution Width 14.2 % (11.5-14.5); Red Blood Cell (RBC) Count 4.74 mill/uL (4.70-6.10)
[2020-11-10 04:37] LABS: Anion Gap 13 mmol/L (10-20); BUN (Urea Nitrogen) 47 mg/dL (8.4-25.7); Calc. Creatinine Clearance 133 mL/min (70-130); Carbon Dioxide 30 mmol/L (22-29); Chloride 109 mmol/L (98-107); Potassium 3.8 mmol/L (3.5-5.1); Sodium 148 mmol/L (136-145)
[2020-11-10 04:38] LABS: BUN/Creatinine Ratio 45.63; Calcium 8.6 mg/dL (7.8-10.44); Glucose 154 mg/dL (70-105); Phosphorus 6.4 mg/dL (2.3-4.7)
[2020-11-10 07:50] LABS: Actual Bicarbonate (HCO3a) 27.8 mEq/L (22-28); Base Excess (BEa) 2.3 mEq/L (-2.0 to +3.0); Calcium, Ionized (arterial) 1.17 mmol/L (1.12-1.30); Carboxyhemoglobin (COHb) 1.3 gm% (0.0-3.0); Hemoglobin (Hb) 16.2 g/dL (14.0-18.0); Potassium - ABG Lab 3.59 mmol/L (3.70-5.30)
[2020-11-10] MEDS: Apixaban 5 MG TAB PER TUBE SCH ×2 (08:59→20:46)
[2020-11-10] MEDS: Famotidine 20 MG TAB PO SCH ×2 (09:00→20:47)
[2020-11-10] MEDS: Dexamethasone 4 mg/ml Vial SLOW IVP SCH ×2 (09:01→20:47)
[2020-11-10] MEDS: NPH, Human Insulin Isophane 300 UNIT/3 ML VIAL SC SCH ×2 (09:03→20:47)
[2020-11-10] MEDS ORDERED: Fentanyl CADD 100 ML ONE ×2 (10:38→23:04)
[2020-11-10] MEDS: FENTANYL IV SCH ×2 (10:43→23:07)
[2020-11-10] MEDS: Insulin Regular 300 UNITS/3 ML VIAL SC PRN (12:54)
[2020-11-10 13:46] LABS: O2 Tension (PaO2), arterial 55.9 mmHg (80.0-100.0); Puncture Site RRA
[2020-11-10] MEDS: Lorazepam 2 MG/ML VIAL SLOW IVP PRN (21:44)
[2020-11-11] MEDS: Propofol 1,000 MG/100 ML VIAL IV PRN ×3 (04:21→23:35)
[2020-11-11] MEDS: Lorazepam 2 MG/ML VIAL SLOW IVP PRN (04:49)
[2020-11-11 05:12] LABS: #Lymphocytes 0.5 thou/uL (1.20-3.40); #Monocytes 0.5 thou/uL (0.11-0.59); #Neutrophils 9.1 thou/uL (1.40-6.50); %Basophils 0.3 % (0.0-1.0); %Eosinophils 0.1 % (0.0-10.0); %Lymphocytes 4.7 % (21.0-51.0); %Monocytes 4.7 % (0.0-10.0); %Neutrophils 90.3 % (42.0-75.0); Hemoglobin 14.5 g/dL (14.0-18.0); Mean Corpuscular HGB CONC 33.2 g/dL (32.0-36.0); Mean Corpuscular Volume 93.5 fL (78.0-98.0); Mean Platelet Volume 9.1 fL (7.4-10.4); Platelet Count 195 thou/uL (130-400); Red Blood Cell (RBC) Count 4.69 mill/uL (4.70-6.10); White Blood Cell (WBC) Count 10.1 thou/uL (4.8-10.8)
[2020-11-11 08:02] LABS: Actual Bicarbonate (HCO3a) 26.4 mEq/L (22-28); CO2 Tension 36.8 mmHg (35.0-45.0); Calcium, Ionized (arterial) 1.17 mmol/L (1.12-1.30); Carboxyhemoglobin (COHb) 0.9 gm% (0.0-3.0); Hemoglobin (Hb) 15.6 g/dL (14.0-18.0); Potassium - ABG Lab 3.73 mmol/L (3.70-5.30); pH, Arterial 7.47 (7.35-7.45)
[2020-11-11 08:03] LABS: O2 Tension (PaO2), arterial 58.8 mmHg (80.0-100.0); Puncture Site RRA
[2020-11-11 08:43] LABS: Albumin 2.8 g/dL (3.5-5.0); Anion Gap 11 mmol/L (10-20); BUN (Urea Nitrogen) 41 mg/dL (8.4-25.7); Calc. Creatinine Clearance 159 mL/min (70-130); Calcium 8.5 mg/dL (7.8-10.44); Carbon Dioxide 28 mmol/L (22-29); Chloride 111 mmol/L (98-107); Glucose 111 mg/dL (70-105); Phosphorus 3.8 mg/dL (2.3-4.7); Potassium 3.8 mmol/L (3.5-5.1); Sodium 146 mmol/L (136-145)
[2020-11-11] MEDS: Apixaban 5 MG TAB PER TUBE SCH ×2 (09:25→20:26)
[2020-11-11] MEDS: Dexamethasone 4 mg/ml Vial SLOW IVP SCH ×2 (09:25→20:26)
[2020-11-11] MEDS: Famotidine 20 MG TAB PO SCH ×2 (09:27→20:26)
[2020-11-11] MEDS: Torsemide 20 MG TAB PO SCH (09:29)
[2020-11-11] MEDS: NPH, Human Insulin Isophane 300 UNIT/3 ML VIAL SC SCH (09:58)
[2020-11-11] MEDS ORDERED: Fentanyl CADD 100 ML ONE (11:58)
[2020-11-11] MEDS: FENTANYL IV SCH (11:59)
[2020-11-11] MEDS ORDERED: Lantus 1000 UNITS/10 ML VIAL SC SCH (21:00)
[2020-11-12] MEDS ORDERED: Fentanyl CADD 100 ML ONE ×2 (00:18→13:18)
[2020-11-12] MEDS: FENTANYL IV SCH ×2 (00:19→13:20)
[2020-11-12 04:06] LABS: #Lymphocytes 0.5 thou/uL (1.20-3.40); #Monocytes 0.6 thou/uL (0.11-0.59); #Neutrophils 9.2 thou/uL (1.40-6.50); %Basophils 0.2 % (0.0-1.0); %Eosinophils 0.2 % (0.0-10.0); %Lymphocytes 4.9 % (21.0-51.0); %Monocytes 5.3 % (0.0-10.0); %Neutrophils 89.4 % (42.0-75.0); Mean Corpuscular HGB CONC 33.6 g/dL (32.0-36.0); Mean Corpuscular Hemoglobin 31.5 pg (27.0-31.0); Mean Corpuscular Volume 93.7 fL (78.0-98.0); Mean Platelet Volume 9.5 fL (7.4-10.4); Platelet Count 180 thou/uL (130-400); Red Blood Cell (RBC) Count 4.75 mill/uL (4.70-6.10); White Blood Cell (WBC) Count 10.3 thou/uL (4.8-10.8)
[2020-11-12 04:28] LABS: Albumin 2.9 g/dL (3.5-5.0); Anion Gap 12 mmol/L (10-20); BUN (Urea Nitrogen) 40 mg/dL (8.4-25.7); BUN/Creatinine Ratio 48.78; Calc. Creatinine Clearance 161 mL/min (70-130); Calcium 8.7 mg/dL (7.8-10.44); Carbon Dioxide 29 mmol/L (22-29); Chloride 109 mmol/L (98-107); Glucose 125 mg/dL (70-105); Phosphorus 4.1 mg/dL (2.3-4.7); Potassium 3.7 mmol/L (3.5-5.1); Sodium 146 mmol/L (136-145)
[2020-11-12] MEDS: Propofol 1,000 MG/100 ML VIAL IV PRN ×4 (04:50→20:45)
[2020-11-12 07:49] LABS: Actual Bicarbonate (HCO3a) 31.3 mEq/L (22-28); Base Excess (BEa) 6.4 mEq/L (-2.0 to +3.0); CO2 Tension 45.2 mmHg (35.0-45.0); Calcium, Ionized (arterial) 1.18 mmol/L (1.12-1.30); Carboxyhemoglobin (COHb) 1.3 gm% (0.0-3.0); Hemoglobin (Hb) 15.2 g/dL (14.0-18.0); Potassium - ABG Lab 3.65 mmol/L (3.70-5.30); pH, Arterial 7.46 (7.35-7.45)
[2020-11-12 08:03] LABS: O2 Tension (PaO2), arterial 57.5 mmHg (80.0-100.0); Puncture Site LRA
[2020-11-12] MEDS: Famotidine 20 MG TAB PO SCH ×2 (09:11→20:22)
[2020-11-12] MEDS: Apixaban 5 MG TAB PER TUBE SCH ×2 (09:11→20:22)
[2020-11-12] MEDS: Torsemide 20 MG TAB PO SCH (09:12)
[2020-11-12] MEDS: Dexamethasone 4 mg/ml Vial SLOW IVP SCH (09:14)
[2020-11-12] MEDS ORDERED: Lantus 1000 UNITS/10 ML VIAL SC SCH (21:00)
[2020-11-13] MEDS: Propofol 1,000 MG/100 ML VIAL IV PRN ×6 (00:41→21:39)
[2020-11-13] MEDS ORDERED: Fentanyl CADD 100 ML ONE ×2 (02:46→16:54)
[2020-11-13] MEDS: FENTANYL IV SCH (02:57)
[2020-11-13 04:52] LABS: #Eosinphils 0.1 thou/uL (0.0-0.7); #Lymphocytes 1.2 thou/uL (1.20-3.40); #Monocytes 0.8 thou/uL (0.11-0.59); #Neutrophils 7.7 thou/uL (1.40-6.50); %Basophils 0.4 % (0.0-1.0); %Eosinophils 0.5 % (0.0-10.0); %Lymphocytes 12.5 % (21.0-51.0); %Monocytes 8.4 % (0.0-10.0); %Neutrophils 78.1 % (42.0-75.0); Hemoglobin 14.6 g/dL (14.0-18.0); Mean Corpuscular Volume 94.1 fL (78.0-98.0); Mean Platelet Volume 9.4 fL (7.4-10.4); Platelet Count 167 thou/uL (130-400); RBC Distribution Width 13.9 % (11.5-14.5); Red Blood Cell (RBC) Count 4.56 mill/uL (4.70-6.10); White Blood Cell (WBC) Count 9.9 thou/uL (4.8-10.8)
[2020-11-13 05:58] LABS: Albumin 2.9 g/dL (3.5-5.0); Anion Gap 10 mmol/L (10-20); BUN (Urea Nitrogen) 43 mg/dL (8.4-25.7); BUN/Creatinine Ratio 51.81; Calc. Creatinine Clearance 151 mL/min (70-130); Calcium 8.6 mg/dL (7.8-10.44); Carbon Dioxide 32 mmol/L (22-29); Chloride 110 mmol/L (98-107); Glucose 63 mg/dL (70-105); Phosphorus 3.9 mg/dL (2.3-4.7); Potassium 3.3 mmol/L (3.5-5.1); Sodium 149 mmol/L (136-145)
[2020-11-13] MEDS ORDERED: Potassium Chloride 40 MEQ in Sodium Chloride 0.9% 250 ML 250 ML IVPB SCH (08:00)
[2020-11-13] MEDS: Famotidine 20 MG TAB PO SCH (08:07)
[2020-11-13] MEDS: Apixaban 5 MG TAB PER TUBE SCH ×2 (08:07→20:51)
[2020-11-13] MEDS: Dexamethasone 4 mg/ml Vial SLOW IVP SCH (08:09)
[2020-11-13 08:10] LABS: Actual Bicarbonate (HCO3a) 32.6 mEq/L (22-28); Base Excess (BEa) 6.9 mEq/L (-2.0 to +3.0); CO2 Tension 49.5 mmHg (35.0-45.0); Calcium, Ionized (arterial) 1.19 mmol/L (1.12-1.30); Carboxyhemoglobin (COHb) 1.7 gm% (0.0-3.0); Hemoglobin (Hb) 16.2 g/dL (14.0-18.0); Potassium - ABG Lab 3.29 mmol/L (3.70-5.30); pH, Arterial 7.44 (7.35-7.45)
[2020-11-13 08:11] LABS: O2 Tension (PaO2), arterial 46.3 mmHg (80.0-100.0)
[2020-11-13 08:12] LABS: ALV-art Gradient 177.025 mmHg (0-20); Puncture Site LRA
[2020-11-13] MEDS ORDERED: Dextrose 5% in Water 1,000 ML IV SCH (08:15)
[2020-11-13] MEDS: Famotidine 20 MG TAB PER TUBE SCH ×2 (08:54→20:51)
[2020-11-13] MEDS ORDERED: Fentanyl 100 MCG/2 ML VIAL ONE (12:21)
[2020-11-13] MEDS: Lantus 1000 UNITS/10 ML VIAL SC SCH (21:39)
[2020-11-14] MEDS: Propofol 1,000 MG/100 ML VIAL IV PRN ×3 (02:02→19:59)
[2020-11-14 04:24] LABS: #Eosinphils 0.1 thou/uL (0.0-0.7); #Lymphocytes 1.3 thou/uL (1.20-3.40); #Monocytes 0.9 thou/uL (0.11-0.59); #Neutrophils 7.6 thou/uL (1.40-6.50); %Basophils 0.3 % (0.0-1.0); %Eosinophils 0.5 % (0.0-10.0); %Lymphocytes 13.1 % (21.0-51.0); %Monocytes 8.8 % (0.0-10.0); %Neutrophils 77.2 % (42.0-75.0); Hemoglobin 14.1 g/dL (14.0-18.0); Mean Corpuscular Hemoglobin 31.2 pg (27.0-31.0); Mean Corpuscular Volume 94.5 fL (78.0-98.0); Mean Platelet Volume 9.3 fL (7.4-10.4); Platelet Count 159 thou/uL (130-400); RBC Distribution Width 13.7 % (11.5-14.5); Red Blood Cell (RBC) Count 4.51 mill/uL (4.70-6.10); White Blood Cell (WBC) Count 9.8 thou/uL (4.8-10.8)
[2020-11-14 04:56] LABS: Anion Gap 13 mmol/L (10-20); BUN (Urea Nitrogen) 33 mg/dL (8.4-25.7); Calc. Creatinine Clearance 165 mL/min (70-130); Calcium 8.6 mg/dL (7.8-10.44); Carbon Dioxide 29 mmol/L (22-29); Chloride 108 mmol/L (98-107); Glucose 115 mg/dL (70-105); Potassium 3.8 mmol/L (3.5-5.1); Sodium 146 mmol/L (136-145)
[2020-11-14] MEDS ORDERED: Fentanyl CADD 100 ML ONE (06:31)
[2020-11-14] MEDS: FENTANYL IV SCH (06:35)
[2020-11-14 07:14] LABS: Actual Bicarbonate (HCO3a) 31.1 mEq/L (22-28); Base Excess (BEa) 5.9 mEq/L (-2.0 to +3.0); CO2 Tension 47.2 mmHg (35.0-45.0); Calcium, Ionized (arterial) 1.18 mmol/L (1.12-1.30); Carboxyhemoglobin (COHb) 1.1 gm% (0.0-3.0); Hemoglobin (Hb) 14.6 g/dL (14.0-18.0); O2 Tension (PaO2), arterial 67.3 mmHg (80.0-100.0); Potassium - ABG Lab 3.38 mmol/L (3.70-5.30); pH, Arterial 7.44 (7.35-7.45)
[2020-11-14 07:16] LABS: Puncture Site RRA
[2020-11-14] MEDS: Apixaban 5 MG TAB PER TUBE SCH ×2 (08:02→19:59)
[2020-11-14] MEDS: Dexamethasone 4 mg/ml Vial SLOW IVP SCH (08:02)
[2020-11-14] MEDS: Famotidine 20 MG TAB PER TUBE SCH ×2 (08:03→19:59)
[2020-11-14 08:45] LABS: Magnesium 2.1 mg/dL (1.6-2.6)
[2020-11-14] MEDS: Insulin Regular 300 UNITS/3 ML VIAL SC PRN (18:18)
[2020-11-14] MEDS: Lantus 1000 UNITS/10 ML VIAL SC SCH (20:38)
[2020-11-15 04:21] LABS: #Lymphocytes 1.2 thou/uL (1.20-3.40); #Monocytes 0.7 thou/uL (0.11-0.59); #Neutrophils 7.9 thou/uL (1.40-6.50); %Basophils 0.4 % (0.0-1.0); %Eosinophils 0.3 % (0.0-10.0); %Lymphocytes 12.1 % (21.0-51.0); %Monocytes 7.4 % (0.0-10.0); %Neutrophils 79.8 % (42.0-75.0); Hemoglobin 14.8 g/dL (14.0-18.0); Mean Corpuscular HGB CONC 34.5 g/dL (32.0-36.0); Mean Corpuscular Volume 92.8 fL (78.0-98.0); Mean Platelet Volume 9.7 fL (7.4-10.4); Platelet Count 145 thou/uL (130-400); RBC Distribution Width 13.3 % (11.5-14.5); Red Blood Cell (RBC) Count 4.62 mill/uL (4.70-6.10); White Blood Cell (WBC) Count 9.8 thou/uL (4.8-10.8)
[2020-11-15 04:43] LABS: Anion Gap 10 mmol/L (10-20); BUN (Urea Nitrogen) 23 mg/dL (8.4-25.7); Calc. Creatinine Clearance 195 mL/min (70-130); Calcium 8.5 mg/dL (7.8-10.44); Carbon Dioxide 28 mmol/L (22-29); Chloride 109 mmol/L (98-107); Glucose 145 mg/dL (70-105); Potassium 3.6 mmol/L (3.5-5.1); Sodium 143 mmol/L (136-145)
[2020-11-15 08:27] LABS: Actual Bicarbonate (HCO3a) 25.7 mEq/L (22-28); Base Excess (BEa) 1.3 mEq/L (-2.0 to +3.0); Calcium, Ionized (arterial) 1.17 mmol/L (1.12-1.30); Carboxyhemoglobin (COHb) 0.9 gm% (0.0-3.0); Hemoglobin (Hb) 16.1 g/dL (14.0-18.0); O2 Tension (PaO2), arterial 64.6 mmHg (80.0-100.0); Potassium - ABG Lab 3.28 mmol/L (3.70-5.30); pH, Arterial 7.43 (7.35-7.45)
[2020-11-15 08:30] LABS: Puncture Site RRA
[2020-11-15] MEDS: Dexamethasone 4 mg/ml Vial SLOW IVP SCH (09:30)
[2020-11-15] MEDS: Apixaban 5 MG TAB PER TUBE SCH ×2 (09:30→19:49)
[2020-11-15] MEDS: Famotidine 20 MG TAB PER TUBE SCH ×2 (09:30→19:49)
[2020-11-15] MEDS ORDERED: Fentanyl CADD 100 ML ONE (10:21)
[2020-11-15] MEDS: Insulin Regular 300 UNITS/3 ML VIAL SC PRN (13:12)
[2020-11-15] MEDS: Lantus 1000 UNITS/10 ML VIAL SC SCH (20:29)
[2020-11-15] MEDS: Propofol 1,000 MG/100 ML VIAL IV PRN (20:43)
[2020-11-15] MEDS: Lorazepam 2 MG/ML VIAL SLOW IVP PRN (21:15)
[2020-11-16] MEDS: Propofol 1,000 MG/100 ML VIAL IV PRN ×4 (03:51→20:49)
[2020-11-16 04:13] LABS: #Basophils 0.1 thou/uL (0.0-0.2); #Eosinphils 0.1 thou/uL (0.0-0.7); #Monocytes 0.8 thou/uL (0.11-0.59); %Basophils 0.5 % (0.0-1.0); %Eosinophils 0.4 % (0.0-10.0); %Lymphocytes 8.2 % (21.0-51.0); %Neutrophils 83.9 % (42.0-75.0); Hemoglobin 14.7 g/dL (14.0-18.0); Mean Corpuscular HGB CONC 33.2 g/dL (32.0-36.0); Mean Corpuscular Hemoglobin 30.8 pg (27.0-31.0); Mean Corpuscular Volume 92.8 fL (78.0-98.0); Mean Platelet Volume 9.9 fL (7.4-10.4); Platelet Count 139 thou/uL (130-400); RBC Distribution Width 13.4 % (11.5-14.5); Red Blood Cell (RBC) Count 4.77 mill/uL (4.70-6.10); White Blood Cell (WBC) Count 11.9 thou/uL (4.8-10.8)
[2020-11-16 04:26] LABS: Anion Gap 9 mmol/L (10-20); BUN (Urea Nitrogen) 18 mg/dL (8.4-25.7); Calc. Creatinine Clearance 189 mL/min (70-130); Calcium 8.4 mg/dL (7.8-10.44); Carbon Dioxide 27 mmol/L (22-29); Chloride 109 mmol/L (98-107); Glucose 138 mg/dL (70-105); Potassium 3.6 mmol/L (3.5-5.1); Sodium 141 mmol/L (136-145)
[2020-11-16] MEDS: Lorazepam 2 MG/ML VIAL SLOW IVP PRN ×7 (04:48→20:49)
[2020-11-16 07:35] LABS: Actual Bicarbonate (HCO3a) 27.3 mEq/L (22-28); Base Excess (BEa) 2.9 mEq/L (-2.0 to +3.0); Calcium, Ionized (arterial) 1.16 mmol/L (1.12-1.30); Carboxyhemoglobin (COHb) 1.4 gm% (0.0-3.0); Hemoglobin (Hb) 16.9 g/dL (14.0-18.0); Potassium - ABG Lab 3.09 mmol/L (3.70-5.30); pH, Arterial 7.44 (7.35-7.45)
[2020-11-16 07:46] LABS: O2 Tension (PaO2), arterial 56.7 mmHg (80.0-100.0)
[2020-11-16 07:47] LABS: Puncture Site RRA
[2020-11-16] MEDS: Famotidine 20 MG TAB PER TUBE SCH ×2 (08:36→20:49)
[2020-11-16] MEDS: Dexamethasone 4 mg/ml Vial SLOW IVP SCH (08:36)
[2020-11-16] MEDS: Vecuronium 10 MG VIAL IVP PRN ×6 (08:55→20:49)
[2020-11-16] MEDS: Apixaban 5 MG TAB PER TUBE SCH ×2 (09:33→20:49)
[2020-11-16] MEDS: Insulin Regular 300 UNITS/3 ML VIAL SC PRN ×2 (10:18→16:35)
[2020-11-16] MEDS ORDERED: Fentanyl CADD 100 ML ONE (14:13)
[2020-11-16] MEDS ORDERED: Norepinephrine 8 MG/0.9% NS 250 ML ONE (17:18)
[2020-11-16] MEDS: Lantus 1000 UNITS/10 ML VIAL SC SCH (20:45)
[2020-11-17] MEDS: Propofol 1,000 MG/100 ML VIAL IV PRN ×5 (00:44→21:37)
[2020-11-17] MEDS: Lorazepam 2 MG/ML VIAL SLOW IVP PRN (03:08)
[2020-11-17] MEDS: Vecuronium 10 MG VIAL IVP PRN (03:19)
[2020-11-17] MEDS ORDERED: Fentanyl CADD 100 ML ONE ×2 (03:59→21:34)
[2020-11-17] MEDS: Fentanyl CADD 100 ML IV SCH ×2 (04:10→21:37)
[2020-11-17] MEDS ORDERED: Metoprolol Tartrate 5 MG/5 ML VIAL ONE (04:12)
[2020-11-17] MEDS ORDERED: FENTANYL IV SCH (04:15)
[2020-11-17] MEDS ORDERED: Metoprolol Tartrate 5 MG/5 ML VIAL IVP SCH (04:15)
[2020-11-17 04:41] LABS: Anion Gap 14 mmol/L (10-20); BUN (Urea Nitrogen) 32 mg/dL (8.4-25.7); Calc. Creatinine Clearance 133 mL/min (70-130); Calcium 8.7 mg/dL (7.8-10.44); Carbon Dioxide 27 mmol/L (22-29); Chloride 105 mmol/L (98-107); Glucose 126 mg/dL (70-105); Potassium 3.7 mmol/L (3.5-5.1); Sodium 142 mmol/L (136-145)
[2020-11-17] MEDS ORDERED: Sodium Chloride 0.9% 500 ML IVPB SCH (04:45)
[2020-11-17 04:59] LABS: Magnesium 1.8 mg/dL (1.6-2.6)
[2020-11-17] MEDS ORDERED: Magnesium 2 GM/50 ML 2 GM in Premix Bag 1 BAG IVPB SCH (05:30)
[2020-11-17] MEDS: Acetaminophen 325 MG TAB PO PRN (05:48)
[2020-11-17 05:58] LABS: Hemoglobin 15.3 g/dL (14.0-18.0); Mean Corpuscular HGB CONC 34.3 g/dL (32.0-36.0); Mean Corpuscular Hemoglobin 32.1 pg (27.0-31.0); Mean Corpuscular Volume 93.7 fL (78.0-98.0); Mean Platelet Volume 9.7 fL (7.4-10.4); Platelet Count 173 thou/uL (130-400); Red Blood Cell (RBC) Count 4.76 mill/uL (4.70-6.10); White Blood Cell (WBC) Count 19.4 thou/uL (4.8-10.8)
[2020-11-17 06:23] LABS: Band 56 % (5-11); Eosinophils 1 % (0-10); Lymphocytes 5 % (21-51); MDiff Complete? YES; Metamyelocyte 1 % (0-0); Monocytes 5 % (0-10); Neutrophil 31 % (42-75); Reactive Lymphocytes 1 % (0-10)
[2020-11-17] MEDS ORDERED: Piperacillin/Tazobactam 3.375 GM in Sodium Chloride 0.9% 100 ML IVPB SCH ×2 (06:45→08:00)
[2020-11-17] MEDS: Famotidine 20 MG TAB PER TUBE SCH ×2 (08:03→20:34)
[2020-11-17] MEDS: Dexamethasone 4 mg/ml Vial SLOW IVP SCH (08:06)
[2020-11-17] MEDS: Apixaban 5 MG TAB PER TUBE SCH ×2 (08:06→20:34)
[2020-11-17] MEDS: Vancomycin 1.5 GRAM/300 ML BAG 1.5 GM in Premix Bag 1 BAG IVPB SCH ×2 (08:07→20:35)
[2020-11-17 08:14] LABS: Bilirubin Negative (Negative); Blood, Urine 2+ (Negative); Clarity Turbid (Clear); Glucose, Urine (Dipstick) Normal (Negative); Ketone, Urine Negative (Negative); Leukocyte 500 Leu/uL (Negative); Nitrite Negative (Negative); Protein, Urine (Dipstick) 50 mg/dL (Neg-Trace); Specific Gravity, Urine 1.017 (1.002-1.036); Squamous Epithelial None Seen HPF (0-3); WBC/HPF 21-50 HPF (0-3); pH, Urine 5.5 (5.0-9.0)
[2020-11-17 08:24] LABS: Bacteria/HPF 1+ HPF (None Seen); Yeast-Budding 2+ HPF (None Seen); Yeast-Hyphae 3+ HPF (None Seen)
[2020-11-17 08:25] LABS: Urine Culture Reflex Yes Yes
[2020-11-17 08:56] LABS: Actual Bicarbonate (HCO3a) 25.1 mEq/L (22-28); Base Excess (BEa) 1.7 mEq/L (-2.0 to +3.0); Calcium, Ionized (arterial) 1.17 mmol/L (1.12-1.30); Hemoglobin (Hb) 14.6 g/dL (14.0-18.0); Potassium - ABG Lab 3.19 mmol/L (3.70-5.30); pH, Arterial 7.46 (7.35-7.45)
[2020-11-17 09:01] LABS: O2 Tension (PaO2), arterial 46.3 mmHg (80.0-100.0); Puncture Site LRA
[2020-11-17] MEDS: Norepinephrine 8 MG/0.9% NS 250 ML IVPB SCH ×2 (10:35→15:38)
[2020-11-17] MEDS: Sodium Chloride 0.9% 1,000 ML IV SCH (13:10)
[2020-11-17] MEDS: Piperacillin/Tazobactam 3.375 GM in Sodium Chloride 0.9% 100 ML IVPB SCH (15:40)
[2020-11-17] MEDS: Lantus 1000 UNITS/10 ML VIAL SC SCH (20:35)
[2020-11-18] MEDS: Piperacillin/Tazobactam 3.375 GM in Sodium Chloride 0.9% 100 ML IVPB SCH ×3 (00:14→17:25)
[2020-11-18] MEDS: Sodium Chloride 0.9% 1,000 ML IV SCH ×2 (01:07→13:43)
[2020-11-18] MEDS: Propofol 1,000 MG/100 ML VIAL IV PRN ×5 (01:43→21:00)
[2020-11-18 04:53] LABS: ALT (SGPT) 32 U/L (8-55); AST (SGOT) 42 U/L (5-34); Albumin 2.4 g/dL (3.5-5.0); Alkaline Phosphatase 95 U/L (40-110); Anion Gap 12 mmol/L (10-20); BUN (Urea Nitrogen) 48 mg/dL (8.4-25.7); Bilirubin, Total 1.5 mg/dL (0.2-1.2); Calc. Creatinine Clearance 81 mL/min (70-130); Calcium 8.2 mg/dL (7.8-10.44); Carbon Dioxide 24 mmol/L (22-29); Chloride 108 mmol/L (98-107); Globulin 2.9 g/dL (2.4-3.5); Glucose 135 mg/dL (70-105); Phosphorus 3.1 mg/dL (2.3-4.7); Potassium 2.9 mmol/L (3.5-5.1); Protein, Total 5.3 g/dL (6.0-8.3); Sodium 141 mmol/L (136-145)
[2020-11-18] MEDS ORDERED: Magnesium 2 GM/50 ML 2 GM in Premix Bag 1 BAG IVPB SCH (05:00)
[2020-11-18] MEDS: Potassium Chloride 40 MEQ in Premix Bag 1 BAG IVPB SCH ×2 (05:05→08:49)
[2020-11-18 05:50] LABS: Hemoglobin 12.4 g/dL (14.0-18.0); Mean Corpuscular Hemoglobin 30.7 pg (27.0-31.0); Mean Corpuscular Volume 93.2 fL (78.0-98.0); Mean Platelet Volume 10.1 fL (7.4-10.4); Platelet Count 115 thou/uL (130-400); RBC Distribution Width 14.1 % (11.5-14.5); Red Blood Cell (RBC) Count 4.04 mill/uL (4.70-6.10); White Blood Cell (WBC) Count 17.2 thou/uL (4.8-10.8)
[2020-11-18 05:51] LABS: Band 36 % (5-11); Lymphocytes 10 % (21-51); MDiff Complete? YES; Monocytes 1 % (0-10); Myelocyte 1 % (0-0); Neutrophil 52 % (42-75); Platelet Morphology Comment Appears Decreased
[2020-11-18] MEDS ORDERED: Potassium Chloride 20 MEQ TAB PER TUBE SCH (06:30)
[2020-11-18 07:27] LABS: Vancomycin, Trough 23.8 ug/mL
[2020-11-18] MEDS: Apixaban 5 MG TAB PER TUBE SCH ×2 (08:37→20:55)
[2020-11-18] MEDS: Famotidine 20 MG TAB PER TUBE SCH ×2 (08:37→20:55)
[2020-11-18] MEDS: Dexamethasone 4 mg/ml Vial SLOW IVP SCH (08:49)
[2020-11-18] MEDS: Vancomycin 1.5 GRAM/300 ML BAG 1.5 GM in Premix Bag 1 BAG IVPB SCH ×2 (08:55→20:55)
[2020-11-18 09:21] LABS: Actual Bicarbonate (HCO3a) 22.3 mEq/L (22-28); Base Excess (BEa) -1.7 mEq/L (-2.0 to +3.0); CO2 Tension 35.6 mmHg (35.0-45.0); Calcium, Ionized (arterial) 1.12 mmol/L (1.12-1.30); Carboxyhemoglobin (COHb) 0.5 gm% (0.0-3.0); Hemoglobin (Hb) 13.5 g/dL (14.0-18.0); Potassium - ABG Lab 3.31 mmol/L (3.70-5.30); pH, Arterial 7.42 (7.35-7.45)
[2020-11-18 09:28] LABS: O2 Tension (PaO2), arterial 59.3 mmHg (80.0-100.0); Puncture Site LRA
[2020-11-18] MEDS ORDERED: Furosemide 40 MG/4 ML VIAL SLOW IVP SCH ×2 (11:00→18:00)
[2020-11-18] MEDS ORDERED: Fentanyl CADD 100 ML ONE (15:17)
[2020-11-18] MEDS: Fentanyl CADD 100 ML IV SCH (15:19)
[2020-11-18] MEDS: Lantus 1000 UNITS/10 ML VIAL SC SCH (20:56)
[2020-11-18] MEDS: Insulin Regular 300 UNITS/3 ML VIAL SC PRN (20:58)
[2020-11-18] MEDS ORDERED: Lidocaine 1% (PF) 30 ML VIAL ONE (22:41)
[2020-11-18 22:47] LABS: Actual Bicarbonate (HCO3a) 16.2 mEq/L (22-28); Base Excess (BEa) -10.2 mEq/L (-2.0 to +3.0); CO2 Tension 37.3 mmHg (35.0-45.0); Calcium, Ionized (arterial) 1.18 mmol/L (1.12-1.30); Carboxyhemoglobin (COHb) 0.3 gm% (0.0-3.0); Potassium - ABG Lab 4.93 mmol/L (3.70-5.30); pH, Arterial 7.26 (7.35-7.45)
[2020-11-18] MEDS ORDERED: Vecuronium 10 MG VIAL ONE (23:20)
[2020-11-18] MEDS ORDERED: Lorazepam 2 MG/ML VIAL ONE (23:20)
[2020-11-18] MEDS ORDERED: Sterile Water 0 ML ONE (23:21)
[2020-11-18] MEDS ORDERED: Sterile Water 10 ML ONE (23:24)
[2020-11-19] MEDS: Piperacillin/Tazobactam 3.375 GM in Sodium Chloride 0.9% 100 ML IVPB SCH ×3 (00:30→15:07)
[2020-11-19 03:00] LABS: Actual Bicarbonate (HCO3a) 22.2 mEq/L (22-28); Base Excess (BEa) -4.2 mEq/L (-2.0 to +3.0); CO2 Tension 45.8 mmHg (35.0-45.0); Calcium, Ionized (arterial) 1.13 mmol/L (1.12-1.30); Carboxyhemoglobin (COHb) 0.2 gm% (0.0-3.0); Hemoglobin (Hb) 13.2 g/dL (14.0-18.0); O2 Tension (PaO2), arterial 87.1 mmHg (80.0-100.0); Potassium - ABG Lab 3.64 mmol/L (3.70-5.30)
[2020-11-19 03:09] LABS: ALV-art Gradient 615.375 mmHg (0-20); Puncture Site LBA
[2020-11-19 03:10] LABS: Puncture Site LBA
[2020-11-19] MEDS: Vecuronium 10 MG VIAL IVP PRN ×2 (04:28→20:51)
[2020-11-19] MEDS: Propofol 1,000 MG/100 ML VIAL IV PRN ×5 (04:28→22:07)
[2020-11-19] MEDS: Sodium Chloride 0.9% 1,000 ML IV SCH ×2 (04:28→16:54)
[2020-11-19 06:11] LABS: ALT (SGPT) 90 U/L (8-55); AST (SGOT) 106 U/L (5-34); Albumin 2.5 g/dL (3.5-5.0); Alkaline Phosphatase 120 U/L (40-110); Anion Gap 16 mmol/L (10-20); BUN (Urea Nitrogen) 54 mg/dL (8.4-25.7); Bilirubin, Total 1.5 mg/dL (0.2-1.2); Calc. Creatinine Clearance 72 mL/min (70-130); Calcium 8.3 mg/dL (7.8-10.44); Carbon Dioxide 22 mmol/L (22-29); Chloride 108 mmol/L (98-107); Globulin 3.3 g/dL (2.4-3.5); Glucose 131 mg/dL (70-105); Magnesium 2.4 mg/dL (1.6-2.6); Potassium 3.6 mmol/L (3.5-5.1); Protein, Total 5.8 g/dL (6.0-8.3); Sodium 142 mmol/L (136-145)
[2020-11-19 06:22] LABS: Hemoglobin 12.5 g/dL (14.0-18.0); Mean Corpuscular HGB CONC 33.3 g/dL (32.0-36.0); Mean Corpuscular Hemoglobin 31.5 pg (27.0-31.0); Mean Corpuscular Volume 94.4 fL (78.0-98.0); Mean Platelet Volume 9.9 fL (7.4-10.4); Platelet Count 102 thou/uL (130-400); RBC Distribution Width 14.4 % (11.5-14.5); Red Blood Cell (RBC) Count 3.97 mill/uL (4.70-6.10); White Blood Cell (WBC) Count 14.2 thou/uL (4.8-10.8)
[2020-11-19 06:23] LABS: Band 32 % (5-11); Lymphocytes 4 % (21-51); MDiff Complete? YES; Monocytes 4 % (0-10); Neutrophil 60 % (42-75); Platelet Morphology Comment Appears Decreased
[2020-11-19 07:20] LABS: Phosphorus 5.2 mg/dL (2.3-4.7)
[2020-11-19] MEDS ORDERED: Rocuronium Bromide 10 MG/ML (10ML VIAL) ONE (08:17)
[2020-11-19] MEDS ORDERED: Lidocaine 1% (PF) 30 ML VIAL ONE (08:18)
[2020-11-19] MEDS ORDERED: Rocuronium Bromide 10 MG/ML (10ML VIAL) IVP SCH (08:30)
[2020-11-19] MEDS ORDERED: Lidocaine 1% PF 10 ML AMP FS SCH (09:30)
[2020-11-19] MEDS: Dexamethasone 4 mg/ml Vial SLOW IVP SCH (09:46)
[2020-11-19] MEDS: Fentanyl CADD 100 ML IV SCH ×2 (09:47→20:17)
[2020-11-19] MEDS: Vancomycin 1.5 GRAM/300 ML BAG 1.5 GM in Premix Bag 1 BAG IVPB SCH ×2 (09:47→22:06)
[2020-11-19] MEDS: Famotidine 20 MG TAB PER TUBE SCH ×2 (09:47→20:20)
[2020-11-19] MEDS: Albumin 25% 25 GM/100 ML BOT IVPB SCH ×2 (09:47→14:31)
[2020-11-19] MEDS: Apixaban 5 MG TAB PER TUBE SCH ×2 (09:47→20:20)
[2020-11-19 10:45] LABS: CO2 Tension 48.5 mmHg (35.0-45.0); O2 Tension (PaO2), arterial 90.2 mmHg (80.0-100.0); pH, Arterial 7.31 (7.35-7.45)
[2020-11-19 10:46] LABS: ALV-art Gradient 557.175 mmHg (0-20); Actual Bicarbonate (HCO3a) 23.9 mEq/L (22-28); Base Excess (BEa) -2.7 mEq/L (-2.0 to +3.0); Calcium, Ionized (arterial) 1.12 mmol/L (1.12-1.30); Carboxyhemoglobin (COHb) 0.4 gm% (0.0-3.0); Hemoglobin (Hb) 13.9 g/dL (14.0-18.0); Potassium - ABG Lab 3.42 mmol/L (3.70-5.30); Puncture Site RRA
[2020-11-19] MEDS ORDERED: Vecuronium 10 MG VIAL ONE (11:10)
[2020-11-19] MEDS ORDERED: Fentanyl CADD 100 ML ONE (20:15)
[2020-11-19] MEDS: Lantus 1000 UNITS/10 ML VIAL SC SCH (21:04)
[2020-11-20] MEDS: Piperacillin/Tazobactam 3.375 GM in Sodium Chloride 0.9% 100 ML IVPB SCH ×4 (00:10→23:49)
[2020-11-20] MEDS: Propofol 1,000 MG/100 ML VIAL IV PRN ×7 (01:50→22:53)
[2020-11-20 04:40] LABS: Hemoglobin 11.2 g/dL (14.0-18.0); Mean Corpuscular HGB CONC 33.8 g/dL (32.0-36.0); Mean Corpuscular Hemoglobin 32.1 pg (27.0-31.0); Mean Corpuscular Volume 94.9 fL (78.0-98.0); Mean Platelet Volume 10.1 fL (7.4-10.4); Platelet Count 84 thou/uL (130-400); RBC Distribution Width 14.2 % (11.5-14.5); Red Blood Cell (RBC) Count 3.49 mill/uL (4.70-6.10); White Blood Cell (WBC) Count 7.5 thou/uL (4.8-10.8)
[2020-11-20 04:50] LABS: Anion Gap 13 mmol/L (10-20); BUN (Urea Nitrogen) 52 mg/dL (8.4-25.7); Calc. Creatinine Clearance 76 mL/min (70-130); Calcium 8.6 mg/dL (7.8-10.44); Carbon Dioxide 25 mmol/L (22-29); Chloride 111 mmol/L (98-107); Glucose 119 mg/dL (70-105); Magnesium 2.4 mg/dL (1.6-2.6); Potassium 3.4 mmol/L (3.5-5.1); Sodium 146 mmol/L (136-145)
[2020-11-20] MEDS ORDERED: Potassium Chloride 20 MEQ TAB PER TUBE SCH (05:15)
[2020-11-20 06:45] LABS: Band 29 % (5-11); Lymphocytes 10 % (21-51); MDiff Complete? YES; Monocytes 2 % (0-10); Neutrophil 59 % (42-75); Platelet Morphology Comment Appears Decreased
[2020-11-20 08:29] LABS: Actual Bicarbonate (HCO3a) 22.2 mEq/L (22-28); CO2 Tension 44.6 mmHg (35.0-45.0); Calcium, Ionized (arterial) 1.17 mmol/L (1.12-1.30); Carboxyhemoglobin (COHb) 0.5 gm% (0.0-3.0); Hemoglobin (Hb) 11.8 g/dL (14.0-18.0); Potassium - ABG Lab 3.52 mmol/L (3.70-5.30); pH, Arterial 7.31 (7.35-7.45)
[2020-11-20 08:36] LABS: O2 Tension (PaO2), arterial 50.5 mmHg (80.0-100.0); Puncture Site LRA
[2020-11-20] MEDS ORDERED: Fentanyl CADD 100 ML ONE ×2 (08:50→20:38)
[2020-11-20] MEDS: Apixaban 5 MG TAB PER TUBE SCH ×2 (08:56→20:33)
[2020-11-20] MEDS: Famotidine 20 MG TAB PER TUBE SCH ×2 (08:56→20:33)
[2020-11-20] MEDS: Fentanyl CADD 100 ML IV SCH ×2 (08:57→20:42)
[2020-11-20] MEDS: methylPREDNISolone Sod Succ/PF 110 MG in Sodium Chloride 0.9% 250 ML 250 ML IVPB SCH (09:11)
[2020-11-20] MEDS: Lantus 1000 UNITS/10 ML VIAL SC SCH (20:36)
[2020-11-20] MEDS: Vecuronium 10 MG VIAL IVP PRN (20:42)
[2020-11-20] MEDS ORDERED: Vancomycin 1.5 GRAM/300 ML BAG 1.5 GM in Premix Bag 1 BAG IVPB SCH (21:00)
[2020-11-21] MEDS: Propofol 1,000 MG/100 ML VIAL IV PRN ×5 (03:13→21:18)
[2020-11-21 04:19] LABS: Anion Gap 15 mmol/L (10-20); BUN (Urea Nitrogen) 53 mg/dL (8.4-25.7); Calc. Creatinine Clearance 77 mL/min (70-130); Calcium 8.7 mg/dL (7.8-10.44); Carbon Dioxide 23 mmol/L (22-29); Chloride 113 mmol/L (98-107); Glucose 166 mg/dL (70-105); Sodium 147 mmol/L (136-145)
[2020-11-21 04:43] LABS: Band 25 % (5-11); Hemoglobin 10.6 g/dL (14.0-18.0); Lymphocytes 7 % (21-51); MDiff Complete? YES; Mean Corpuscular HGB CONC 33.7 g/dL (32.0-36.0); Mean Corpuscular Volume 95.2 fL (78.0-98.0); Mean Platelet Volume 9.6 fL (7.4-10.4); Monocytes 5 % (0-10); Neutrophil 62 % (42-75); Platelet Count 76 thou/uL (130-400); Platelet Morphology Comment Appears Decreased; RBC Distribution Width 14.1 % (11.5-14.5); Reactive Lymphocytes 1 % (0-10); Red Blood Cell (RBC) Count 3.29 mill/uL (4.70-6.10); Toxic Granulation SLIGHT; White Blood Cell (WBC) Count 6.7 thou/uL (4.8-10.8)
[2020-11-21] MEDS: Insulin Regular 300 UNITS/3 ML VIAL SC PRN ×3 (04:53→20:00)
[2020-11-21] MEDS: Famotidine 20 MG TAB PER TUBE SCH ×2 (08:05→19:52)
[2020-11-21] MEDS: Apixaban 5 MG TAB PER TUBE SCH ×2 (08:05→20:02)
[2020-11-21] MEDS: methylPREDNISolone Sod Succ/PF 110 MG in Sodium Chloride 0.9% 250 ML 250 ML IVPB SCH (08:05)
[2020-11-21] MEDS: Piperacillin/Tazobactam 3.375 GM in Sodium Chloride 0.9% 100 ML IVPB SCH ×2 (08:05→15:46)
[2020-11-21] MEDS ORDERED: Fentanyl CADD 100 ML ONE ×2 (08:54→21:20)
[2020-11-21] MEDS: Fentanyl CADD 100 ML IV SCH ×2 (08:57→21:23)
[2020-11-21 09:03] LABS: Actual Bicarbonate (HCO3a) 25.1 mEq/L (22-28); Base Excess (BEa) -1.7 mEq/L (-2.0 to +3.0); CO2 Tension 52.3 mmHg (35.0-45.0); Calcium, Ionized (arterial) 1.19 mmol/L (1.12-1.30); Carboxyhemoglobin (COHb) 0.4 gm% (0.0-3.0); Hemoglobin (Hb) 10.9 g/dL (14.0-18.0); Potassium - ABG Lab 3.87 mmol/L (3.70-5.30)
[2020-11-21 09:04] LABS: Puncture Site LRA
[2020-11-21 09:05] LABS: ALV-art Gradient 341.075 mmHg (0-20)
[2020-11-21] MEDS ORDERED: Lidocaine 1% (PF) 30 ML VIAL ONE (09:57)
[2020-11-21] MEDS ORDERED: Vecuronium 10 MG VIAL ONE (10:03)
[2020-11-21] MEDS: Dextrose 5% in Water 1,000 ML IV SCH (12:04)
[2020-11-21] MEDS: Lantus 1000 UNITS/10 ML VIAL SC SCH (19:52)
[2020-11-21] MEDS: Vecuronium 10 MG VIAL IVP PRN (21:31)
[2020-11-22] MEDS: Piperacillin/Tazobactam 3.375 GM in Sodium Chloride 0.9% 100 ML IVPB SCH ×2 (00:14→07:48)
[2020-11-22] MEDS: Dextrose 5% in Water 1,000 ML IV SCH (00:15)
[2020-11-22] MEDS: Propofol 1,000 MG/100 ML VIAL IV PRN ×6 (00:17→23:11)
[2020-11-22] MEDS: Insulin Regular 300 UNITS/3 ML VIAL SC PRN ×4 (03:37→21:40)
[2020-11-22 04:15] LABS: Anion Gap 11 mmol/L (10-20); BUN (Urea Nitrogen) 56 mg/dL (8.4-25.7); CRP (Inflammatory) 22.95 mg/dL (= or < 0.5); Calc. Creatinine Clearance 93 mL/min (70-130); Calcium 8.8 mg/dL (7.8-10.44); Carbon Dioxide 25 mmol/L (22-29); Chloride 112 mmol/L (98-107); Glucose 194 mg/dL (70-105); Sodium 144 mmol/L (136-145)
[2020-11-22 04:20] LABS: Hemoglobin 10.5 g/dL (14.0-18.0); Mean Corpuscular HGB CONC 33.5 g/dL (32.0-36.0); Mean Corpuscular Hemoglobin 31.5 pg (27.0-31.0); Mean Corpuscular Volume 94.2 fL (78.0-98.0); Mean Platelet Volume 9.4 fL (7.4-10.4); Platelet Count 95 thou/uL (130-400); Red Blood Cell (RBC) Count 3.32 mill/uL (4.70-6.10); White Blood Cell (WBC) Count 14.1 thou/uL (4.8-10.8)
[2020-11-22 05:17] LABS: Band 23 % (5-11); Lymphocytes 7 % (21-51); MDiff Complete? YES; Metamyelocyte 1 % (0-0); Myelocyte 1 % (0-0); Neutrophil 65 % (42-75); Platelet Morphology Comment Appears Decreased; Reactive Lymphocytes 3 % (0-10)
[2020-11-22] MEDS: Vecuronium 10 MG VIAL IVP PRN ×3 (05:18→19:45)
[2020-11-22] MEDS: methylPREDNISolone Sod Succ/PF 110 MG in Sodium Chloride 0.9% 250 ML 250 ML IVPB SCH (07:48)
[2020-11-22 08:00] LABS: Actual Bicarbonate (HCO3a) 22.8 mEq/L (22-28); Base Excess (BEa) -2.5 mEq/L (-2.0 to +3.0); CO2 Tension 41.2 mmHg (35.0-45.0); Carboxyhemoglobin (COHb) 0.2 gm% (0.0-3.0); Hemoglobin (Hb) 10.4 g/dL (14.0-18.0); Potassium - ABG Lab 3.94 mmol/L (3.70-5.30); pH, Arterial 7.36 (7.35-7.45)
[2020-11-22 08:06] LABS: O2 Tension (PaO2), arterial 56.3 mmHg (80.0-100.0); Puncture Site LRA
[2020-11-22] MEDS: Metolazone 5 MG TAB PER TUBE SCH (09:09)
[2020-11-22] MEDS: Famotidine 20 MG TAB PER TUBE SCH ×2 (09:09→21:39)
[2020-11-22] MEDS ORDERED: Fentanyl CADD 100 ML ONE ×2 (09:24→20:59)
[2020-11-22] MEDS: Apixaban 5 MG TAB PER TUBE SCH ×2 (09:26→21:39)
[2020-11-22] MEDS: Fentanyl CADD 100 ML IV SCH ×2 (09:26→21:05)
[2020-11-22] MEDS ORDERED: Torsemide 20 MG TAB PER TUBE SCH (12:00)
[2020-11-22] MEDS ORDERED: Morphine 2 MG/ML VIAL SLOW IVP PRN (12:45)
[2020-11-22] MEDS ORDERED: Propofol 1,000 MG/100 ML VIAL IV PRN (12:45)
[2020-11-22] MEDS ORDERED: Propofol BOLUS 1,000 MG/100 ML VIAL IV PRN (12:45)
[2020-11-22] MEDS ORDERED: DISCONTINUE PREVIOUS NARCOTIC PAIN MEDICATIONS AND BENZODIAZEPINES FS SCH (12:45)
[2020-11-22] MEDS ORDERED: Fentanyl BOLUS 250 ML IVPB PRN (12:45)
[2020-11-22] MEDS: Lorazepam 2 MG/ML VIAL SLOW IVP PRN ×4 (12:52→17:40)
[2020-11-22] MEDS: Acetaminophen 325 MG TAB PO PRN (13:59)
[2020-11-22] MEDS: Nystatin Powder 15 GM BOT TOP SCH ×2 (15:17→21:38)
[2020-11-22 18:45] LABS: pH, Arterial 7.22 (7.35-7.45)
[2020-11-22 18:46] LABS: Actual Bicarbonate (HCO3a) 24.2 mEq/L (22-28); Base Excess (BEa) -4.1 mEq/L (-2.0 to +3.0); O2 Tension (PaO2), arterial 52.9 mmHg (80.0-100.0)
[2020-11-22 18:47] LABS: Carboxyhemoglobin (COHb) 0.6 gm% (0.0-3.0); Hemoglobin (Hb) 11.6 g/dL (14.0-18.0); Potassium - ABG Lab 3.93 mmol/L (3.70-5.30); Puncture Site RBR
[2020-11-22] MEDS ORDERED: Sterile Water 10 ML ONE (19:44)
[2020-11-22] MEDS ORDERED: Atropine Sulfate 1 mg/10 ml Syringe IVP SCH (21:00)
[2020-11-22] MEDS: Lantus 1000 UNITS/10 ML VIAL SC SCH (21:39)
[2020-11-23] MEDS: Propofol 1,000 MG/100 ML VIAL IV PRN ×4 (02:12→16:22)
[2020-11-23 05:26] LABS: Anion Gap 16 mmol/L (10-20); BUN (Urea Nitrogen) 59 mg/dL (8.4-25.7); Band 32 % (5-11); Calc. Creatinine Clearance 65 mL/min (70-130); Calcium 8.5 mg/dL (7.8-10.44); Carbon Dioxide 23 mmol/L (22-29); Chloride 107 mmol/L (98-107); Eosinophils 2 % (0-10); Glucose 126 mg/dL (70-105); Hemoglobin 10.2 g/dL (14.0-18.0); Hypochromia SLIGHT = 6-15 cells (100X) (0-5/hpf); Lymphocytes 13 % (21-51); MDiff Complete? YES; Mean Corpuscular HGB CONC 33.3 g/dL (32.0-36.0); Mean Corpuscular Hemoglobin 31.7 pg (27.0-31.0); Mean Corpuscular Volume 95.2 fL (78.0-98.0); Mean Platelet Volume 9.4 fL (7.4-10.4); Monocytes 6 % (0-10); Neutrophil 47 % (42-75); Platelet Count 104 thou/uL (130-400); Platelet Morphology Comment Appears Decreased; Potassium 4.6 mmol/L (3.5-5.1); RBC Distribution Width 13.9 % (11.5-14.5); Red Blood Cell (RBC) Count 3.22 mill/uL (4.70-6.10); Sodium 141 mmol/L (136-145); White Blood Cell (WBC) Count 23.9 thou/uL (4.8-10.8)
[2020-11-23] MEDS: methylPREDNISolone Sod Succ/PF 110 MG in Sodium Chloride 0.9% 250 ML 250 ML IVPB SCH (08:00)
[2020-11-23] MEDS ORDERED: Fentanyl CADD 100 ML ONE (09:28)
[2020-11-23] MEDS: Fentanyl CADD 100 ML IV SCH (09:49)
[2020-11-23] MEDS: Metolazone 5 MG TAB PER TUBE SCH (10:23)
[2020-11-23] MEDS: Nystatin Powder 15 GM BOT TOP SCH ×2 (10:23→16:23)
[2020-11-23] MEDS: Apixaban 5 MG TAB PER TUBE SCH (10:24)
[2020-11-23] MEDS: Famotidine 20 MG TAB PER TUBE SCH (10:24)
[2020-11-23 11:25] VITALS: BP 106/69
[2020-11-23 11:59] LABS: Actual Bicarbonate (HCO3a) 22.3 mEq/L (22-28); Base Excess (BEa) -5.1 mEq/L (-2.0 to +3.0); CO2 Tension 54.4 mmHg (35.0-45.0); Calcium, Ionized (arterial) 1.16 mmol/L (1.12-1.30); Carboxyhemoglobin (COHb) 0.1 gm% (0.0-3.0); Hemoglobin (Hb) 10.3 g/dL (14.0-18.0); O2 Tension (PaO2), arterial 62.3 mmHg (80.0-100.0); Potassium - ABG Lab 4.53 mmol/L (3.70-5.30); pH, Arterial 7.24 (7.35-7.45)
[2020-11-23 12:00] LABS: Puncture Site LRA
[2020-11-23 12:50] VITALS: BMI 36.2
[2020-11-23] MEDS: Lorazepam 2 MG/ML VIAL SLOW IVP PRN (14:09)
[2020-11-23] MEDS ORDERED: Metoclopramide HCl 10 MG/2 ML VIAL IVP SCH (17:45)
[2020-11-23 19:39] VITALS: TEMP 99.3
== END 2020-11-23 20:32 | disposition expired | DRG 870 ==
LOC: ERS 12:42 → ERHOLD 15:54 → CCU 17:43
PROVIDERS: ADMIT Emergency Medicine; ATTEND Family Medicine
PROC: 8E0ZXY6 Isolation (ICD-10-PCS; principal; 2020-11-02)
PROC: 5A1955Z Respiratory Ventilation, Greater than 96 Consecutive Hours (ICD-10-PCS; 2020-11-02)
PROC: 0D9670Z Drainage of Stomach with Drainage Device, Via Natural or Artificial Opening (ICD-10-PCS; 2020-11-02)
PROC: 0BH17EZ Insertion of Endotracheal Airway into Trachea, Via Natural or Artificial Opening (ICD-10-PCS; 2020-11-02)
PROC: 06HY33Z Insertion of Infusion Device into Lower Vein, Percutaneous Approach (ICD-10-PCS; 2020-11-02)
PROC: 3E033XZ Introduction of Vasopressor into Peripheral Vein, Percutaneous Approach (ICD-10-PCS; 2020-11-02)
PROC: 3E0G76Z Introduction of Nutritional Substance into Upper GI, Via Natural or Artificial Opening (ICD-10-PCS; 2020-11-02)
PROC: XW033H5 Introduction of Tocilizumab into Peripheral Vein, Percutaneous Approach, New Technology Group 5 (ICD-10-PCS; 2020-11-02)
PROC: 3E0333Z Introduction of Anti-inflammatory into Peripheral Vein, Percutaneous Approach (ICD-10-PCS; 2020-11-03)
PROC: 06HY33Z Insertion of Infusion Device into Lower Vein, Percutaneous Approach (ICD-10-PCS; 2020-11-16)
PROC: 0W9930Z Drainage of Right Pleural Cavity with Drainage Device, Percutaneous Approach (ICD-10-PCS; 2020-11-19)
PROC: 0W9930Z Drainage of Right Pleural Cavity with Drainage Device, Percutaneous Approach (ICD-10-PCS; 2020-11-19)
PROC: 0W9930Z Drainage of Right Pleural Cavity with Drainage Device, Percutaneous Approach (ICD-10-PCS; 2020-11-21)
PROC: 0W9930Z Drainage of Right Pleural Cavity with Drainage Device, Percutaneous Approach (ICD-10-PCS; 2020-11-22)
PROC: 0W9930Z Drainage of Right Pleural Cavity with Drainage Device, Percutaneous Approach (ICD-10-PCS; 2020-11-23)
DX: A41.89 Other specified sepsis (principal); U07.1 COVID-19; R65.21 Severe sepsis with septic shock; J12.82 Pneumonia due to coronavirus disease 2019; J96.01 Acute respiratory failure with hypoxia; J93.0 Spontaneous tension pneumothorax; N17.0 Acute kidney failure with tubular necrosis; M62.82 Rhabdomyolysis; E87.1 Hypo-osmolality and hyponatremia; N39.0 Urinary tract infection, site not specified; T85.618A Breakdown (mechanical) of other specified internal prosthetic devices, implants and grafts, initial encounter; Z66 Do not resuscitate; E11.65 Type 2 diabetes mellitus with hyperglycemia; E87.6 Hypokalemia; R79.89 Other specified abnormal findings of blood chemistry; E86.9 Volume depletion, unspecified; E86.0 Dehydration; E11.21 Type 2 diabetes mellitus with diabetic nephropathy; E66.01 Morbid (severe) obesity due to excess calories; E87.70 Fluid overload, unspecified; E83.39 Other disorders of phosphorus metabolism; T50.2X5A Adverse effect of carbonic-anhydrase inhibitors, benzothiadiazides and other diuretics, initial encounter; E87.8 Other disorders of electrolyte and fluid balance, not elsewhere classified; E11.649 Type 2 diabetes mellitus with hypoglycemia without coma; I49.3 Ventricular premature depolarization; B96.5 Pseudomonas (aeruginosa) (mallei) (pseudomallei) as the cause of diseases classified elsewhere; Y84.8 Other medical procedures as the cause of abnormal reaction of the patient, or of later complication, without mention of misadventure at the time of the procedure; Z68.36 Body mass index [BMI] 36.0-36.9, adult; Z78.1 Physical restraint status; Z87.891 Personal history of nicotine dependence
CPT/HCPCS: 0240U; 31500; 36415; 36416; 36556; 36600; 51702; 71045; 80048; 80053; 80069; 80202; 81001; 82040; 82550; 82553; 82570; 82728; 82805; 83036; 83605; 83690; 83735; 83880; 84100; 84156; 84300; 84484; 84540; 85025; 85379; 86140; 87040; 87070; 87077; 87086; 87149; 87186; 87205; 87449; 87899; 89220; 93005; 93010; 94002; 94003; 94660; 96365; 96368; 96374; 96375; 99292; J0456; J0461; J0692; J0696; J1100; J1642; J1650; J1815; J1940; J2001; J2060; J2543; J2704; J2765; J2930; J3010; J3262; J3370; J3475; J3480; J3490; J7030; J7050; J7070; P9045; P9047; S0028